=== PATIENT | female | born 2000 | race Caucasian/White ===

== ENCOUNTER 2019-01-08 23:21 | Inpatient (IN) ==
[~2019-01-08 23:21] MED LIST: *HR* Nalbuphine 10 MG/ML AMPUL IVP PRN; Famotidine 20 MG/2 ML VIAL IVP PRN; Metoclopramide 10 MG/2 ML VIAL IVP PRN; Naloxone 0.4 MG/ML INJ IVP PRN
[2019-01-08] MEDS ORDERED: Ringers Solution, Lactated 1,000 ML IVC SCH (23:30)
[2019-01-08 23:49] LABS: Basophils # 0.1 K/mcL (0.0-0.2); Basophils % 0.4 %; Eosinophils # 0.2 K/mcL (0.0-0.6); Eosinophils % 1.3 %; Hemoglobin 13.5 g/dL (11.5-15.4); Immature Granulocytes % 0.9 % (0-4); Lymphocytes # 2.5 K/mcL (0.6-4.6); Lymphocytes % 13.7 %; Mean Corpuscular HGB Conc 32.1 g/dL (31.6-35.5); Mean Corpuscular Hemoglobin 28.2 pg (28.0-33.3); Mean Corpuscular Volume 87.7 fL (83.0-100.0); Mean Platelet Volume 9.8 fL (9.4-12.4); Monocytes # 1.3 K/mcL (0.0-1.3); Monocytes % 7.4 %; Neutrophils # 13.9 K/mcL (1.6-8.9); Platelet Count 315 K/mcL (140-400); Red Blood Count 4.79 M/mcL (3.82-4.97); Red Cell Distribution Width 14.8 % (11.5-14.5); Segmented Neutrophils % 76.3 %; White Blood Count 18.2 K/mcL (4.3-11.1)
[2019-01-09 00:08] LABS: Alanine Aminotransferase 14 Units/L (7-52); Aspartate Amino Transferase 11 Units/L (13-39); BUN/Creatinine Ratio 19 (6-26); Blood Urea Nitrogen 15 mg/dL (6-20); Lactate Dehydrogenase 170 Units/L (140-271); Uric Acid 4.5 mg/dL (2.3-7.6); eGFR For African Americans > 60; eGFR For Non-African Americans > 60
[2019-01-09 00:32] LABS: Amphetamine Screen,Urine Negative ng/mL (Cutoff=1000); Barbiturate Screen,Urine Negative ng/mL (Cutoff=200); Benzodiazepines Screen,Urine Negative ng/mL (Cutoff=200); Cannabinoid Screen,Urine Negative ng/mL (Cutoff = 50); Cocaine Screen,Urine Negative ng/mL (Cutoff= 300); Opiate Screen,Urine Negative ng/mL (Cutoff=300); Phencyclidine Screen,Urine Negative ng/mL (Cutoff=25)
[2019-01-09] MEDS ORDERED: Ropivacaine/PF 0.2% 20 ML VIAL EP ONE (04:10)
[2019-01-09] MEDS ORDERED: EPHEDrine 50 MG/ML VIAL IVP PRN (04:10)
[2019-01-09] MEDS ORDERED: Ondansetron 4 MG/2 ML VIAL IVP PRN (04:10)
[2019-01-09] MEDS ORDERED: *HR* FentaNYL (PF) 100 MCG/2 ML VIAL EP ONE (04:10)
[2019-01-09] MEDS ORDERED: Naloxone 0.4 MG/ML INJ IVP PRN (04:10)
[2019-01-09] MEDS ORDERED: Epidural Premix (fent/bupiv) 110 ML EP SCH (04:15)
[2019-01-09] MEDS ORDERED: *HR* FentaNYL (PF) 100 MCG/2 ML VIAL ONE (04:21)
[2019-01-09] MEDS ORDERED: Oxytocin 20 units/ LR 1000 mL 20 UNIT/1,000 ML BAG IVC SCH ×2 (12:11)
[2019-01-09] MEDS ORDERED: *HR* HYDROcodone/Acet 5/325 mg TABLET PO PRN (12:11)
[2019-01-09] MEDS ORDERED: Benzocaine/Menthol 56 GM AEROSOL SPRAY TP PRN (12:11)
[2019-01-09] MEDS ORDERED: Acetaminophen 325 MG TABLET PO PRN (12:11)
[2019-01-09] MEDS: Ibuprofen 600 MG TABLET PO SCH ×2 (12:35→20:16)
[2019-01-10] MEDS: Ibuprofen 600 MG TABLET PO SCH ×3 (02:34→20:43)
[2019-01-10] MEDS: Prenatal Vit/FA 1 EACH TABLET PO SCH (09:54)
[2019-01-11 08:08] VITALS: BP 122/82
[2019-01-11] MEDS: Ibuprofen 600 MG TABLET PO SCH (09:11)
[2019-01-11] MEDS: Prenatal Vit/FA 1 EACH TABLET PO SCH (09:11)
[2019-01-11] MEDS ORDERED: Etonogestrel 68 MG IMPLANT IL ONE (12:11)
[2019-01-11] MEDS ORDERED: Lidocaine -MPF 1% 5 ML AMPUL INFILT ONE (12:12)
== END 2019-01-11 13:16 | disposition home or self-care (01) | DRG 560 ==
LOC: 1NENULAB → 1NENUOBS 01-09 11:33
PROVIDERS: ADMIT Advanced Practice Midwife; ATTEND Advanced Practice Midwife

== ENCOUNTER 2021-05-13 16:38 | Inpatient (IN) ==
[2021-05-13] MEDS ORDERED: Famotidine 20 MG/2 ML VIAL IVP PRN (16:50)
[2021-05-13] MEDS ORDERED: Naloxone 0.4 MG/ML INJ IVP PRN (16:50)
[2021-05-13] MEDS ORDERED: Metoclopramide 10 MG/2 ML VIAL IVP PRN (16:50)
[2021-05-13] MEDS ORDERED: Ringers Solution, Lactated 1,000 ML IVC SCH (17:00)
[2021-05-13] MEDS ORDERED: Ondansetron 4 MG/2 ML VIAL IVP PRN (17:06)
[2021-05-13] MEDS ORDERED: *HR* Nalbuphine 10 MG/ML AMPUL IV PRN (17:06)
[2021-05-13] MEDS ORDERED: Oxytocin 20 units/ LR 1000 mL 20 UNIT/1,000 ML BAG IVC SCH (17:15)
[2021-05-13 18:35] LABS: Basophils # 0.1 K/mcL (0.0-0.2); Basophils % 0.4 %; Eosinophils # 0.1 K/mcL (0.0-0.6); Eosinophils % 0.6 %; Hematocrit 39.4 % (35.3-44.9); Hemoglobin 12.4 g/dL (11.5-15.4); Immature Granulocytes % 1.5 % (0-4); Lymphocytes # 2.5 K/mcL (0.6-4.6); Mean Corpuscular HGB Conc 31.5 g/dL (31.6-35.5); Mean Corpuscular Hemoglobin 28.8 pg (28.0-33.3); Mean Corpuscular Volume 91.4 fL (83.0-100.0); Mean Platelet Volume 10.2 fL (9.4-12.4); Monocytes # 1.2 K/mcL (0.0-1.3); Monocytes % 7.2 %; Neutrophils # 12.6 K/mcL (1.6-8.9); Platelet Count 334 K/mcL (140-400); Red Blood Count 4.31 M/mcL (3.82-4.97); Red Cell Distribution Width 14.9 % (11.5-14.5); Segmented Neutrophils % 75.3 %; White Blood Count 16.8 K/mcL (4.3-11.1)
[2021-05-13 18:43] LABS: Amphetamine Screen,Urine Negative ng/mL (Cutoff=1000); Barbiturate Screen,Urine Negative ng/mL (Cutoff=200); Benzodiazepines Screen,Urine Negative ng/mL (Cutoff=200); Cannabinoid Screen,Urine Negative ng/mL (Cutoff = 50); Cocaine Screen,Urine Negative ng/mL (Cutoff= 300); Opiate Screen,Urine Negative ng/mL (Cutoff=300); Phencyclidine Screen,Urine Negative ng/mL (Cutoff=25)
[2021-05-13] MEDS ORDERED: EPHEDrine 50 MG/ML VIAL IVP PRN (19:11)
[2021-05-13] MEDS ORDERED: Epidural Premix (fent/bupiv) 110 ML EP SCH (19:15)
[2021-05-13 19:19] LABS: Influenza A PCR Negative (Negative); Influenza B PCR Negative (Negative); Resp. Syncytial Virus PCR Negative (Negative)
[2021-05-13 19:41] LABS: SARS-CoV-2 by PCR (In House) Negative (Negative)
[2021-05-14] MEDS ORDERED: Oxytocin 20 units/ LR 1000 mL 20 UNIT/1,000 ML BAG IVC SCH (03:55)
[2021-05-14] MEDS ORDERED: Ondansetron ODT 4 MG TAB.RAPDIS SL PRN (03:55)
[2021-05-14] MEDS ORDERED: Benzocaine/Menthol 56 GM AEROSOL SPRAY TP PRN (03:55)
[2021-05-14] MEDS ORDERED: Lanolin 7 G OINT...G. TP PRN (03:55)
[2021-05-14] MEDS: Acetaminophen 325 MG TABLET PO SCH ×4 (04:44→22:56)
[2021-05-14] MEDS: Ibuprofen 600 MG TABLET PO SCH ×4 (04:44→22:57)
[2021-05-14] MEDS: Prenatal Vit/FA 1 EACH TABLET PO SCH (08:54)
[2021-05-14] MEDS ORDERED: Nystatin POWDER 30 GM BOTTLE TP SCH (09:00)
[2021-05-15] MEDS: Acetaminophen 325 MG TABLET PO SCH (05:34)
[2021-05-15] MEDS: Ibuprofen 600 MG TABLET PO SCH (05:35)
[2021-05-15 08:37] VITALS: BP 111/76; PULSE 88; TEMP 97.6; O2SAT 95
[2021-05-15] MEDS: Prenatal Vit/FA 1 EACH TABLET PO SCH (09:56)
== END 2021-05-15 12:43 | disposition home or self-care (01) | DRG 560 ==
LOC: 1NENULAB 16:38 → 1NENUOBS 05-14 03:54
PROVIDERS: ADMIT Advanced Practice Midwife; ATTEND Advanced Practice Midwife